=== PATIENT | female | born 1965 | race Caucasian/White ===

== ENCOUNTER 2017-11-24 06:25 | Emergency (ER) | payer OTHER ==
[~2017-11-24] VITALS: Ht 161.3 cm; Wt 91.0 kg
[2017-11-24 06:28] VITALS: Ht 161.3 cm; Wt 91.0 kg
[2017-11-24] MEDS ORDERED: HYDR25TA4 PO (06:47)
[2017-11-24] MEDS ORDERED: DVN80 PO (06:47)
[2017-11-24] MEDS ORDERED: METO25TA3 PO (06:47)
[2017-11-24] MEDS ORDERED: LUTE10TA PO (06:58)
[2017-11-24] MEDS ORDERED: MULT-506 PO (06:58)
--- NOTE | 2017-11-24 07:08 | EMERGENCY ROOM VISIT NOTE ---
History First contact with patient: 06:37 Chief Complaint: CHEST PAIN Stated Complaint: CHEST PAIN/HEAVIENESS History of Present Illness The patient is a 52 year old female with newly diagnosed HTN who presents to the Emergency Room with complaints of "chest twinges" and pressure/burning like pain and nausea since last night. Also reports R shoulder blade pain x 1 week ( think may have pulled a muscle; does recall lifting 6 year old grandson out of the car). Associated with light headedness. Denies vomiting, pain radiating from chest to back or L arm, or sob. Denies any recent trips or immobilization. Denies hx of GERD. Pt was started on Metoprolol 25mg (0.5 tab daily), Hctz 25mg daily and valsartan 80mg daily by Dr. Kaur in October. Pt does report medications causing burning chest sensation, nausea and dizziness. Of note: seen cardiology and has cardiac cath scheduled for [address] Kaur for similar pressure like chest pain for which she went to [place] ED 1 month ago. Review of Systems see below Constitutional: No fever Respiratory: No shortness of breath Cardiovascular: + chest pain Abdomen: + nausea, + diarrhea (chronic), No pain, No vomiting Musculoskeletal: + problem reported (Shoulder blade pain) Genitourinary - Female: No dysuria Neurologic: + problem reported (dizziness) Past Medical/Surgical History Medical Problems: (1) Hypertension Social History Smoking Status: Never Smoker Current/Historical Medications Scheduled Hydrochlorothiazide (Hctz), 25 MG PO HS Lutein (Lutein), 1 TAB PO DAILY Metoprolol Succ (Toprol Xl) (Toprol-Xl), 12.5 MG PO HS Multivitamin (Multivitamin), 1 TAB PO DAILY Valsartan (Diovan), 80 MG PO HS Physical Exam Vital Signs Date Time Temp Pulse Resp B/P (MAP) Pulse Ox O2 Delivery O2 Flow Rate FiO2 11/24/17 08:10 98 11/24/17 08:09 83 18 110/83 98 Room Air 11/24/17 07:45 84 15 95 11/24/17 07:40 80 21 96 11/24/17 07:35 77 20 96 11/24/17 07:30 75 19 95 11/24/17 07:25 75 23 96 11/24/17 07:20 82 29 97 4/10/18 07:15 80 26 96 11/24/17 07:10 82 22 96 11/24/17 07:05 77 15 95 11/24/17 07:00 81 25 97 11/24/17 06:55 85 24 117/77 97 11/24/17 06:50 85 31 11/24/17 06:45 85 30 11/24/17 06:40 83 25 11/24/17 06:39 82 11/24/17 06:28 36.5 85 20 122/79 95 Room Air Physical Exam see below General Appearance: no apparent distress Head: normocephalic, atraumatic Eyes: normal inspection ENT: normal ENT inspection Neck: supple Respiratory/Chest: chest non-tender, lungs clear, normal breath sounds Cardiovascular: regular rate, rhythm, no murmur Abdomen / GI: normal bowel sounds, non tender, soft Back: normal inspection, + pertinent finding (R and L shoulder blades NTTP ) Extremities: no calf tenderness, no pedal edema Neurologic/Psych: alert, oriented x 3 Medical Decision & Procedures ER Provider Diagnostic Interpretation: EKG: constant with prior EKG per Dr. Kaur's note in [place] on 10/21/17 from her ED visit 1 month ago: NSR 78 with LV hypertrophy prolonged QT and T wave abnormality CXR: constant with prior ED visit CXR [address] Kaur's note in [place] on 10/21/17: mild cardiomegaly Laboratory Results 11/24/17 06:40 Red Blood Count 5.30, Mean Corpuscular Volume 84.0, Mean Corpuscular Hemoglobin 28.7, Mean Corpuscular Hemoglobin Concent 34.2, Mean Platelet Volume 10.4, Neutrophils (%) (Auto) 60.9, Lymphocytes (%) (Auto) 26.0, Monocytes (%) (Auto) 9.4, Eosinophils (%) (Auto) 2.9, Basophils (%) (Auto) 0.7, Neutrophils # (Auto) 4.65, Lymphocytes # (Auto) 1.99, Monocytes # (Auto) 0.72, Eosinophils # (Auto) 0.22, Basophils # (Auto) 0.05 11/24/17 06:40 Test 11/24/17 06:40 11/24/17 06:54 White Blood Count 7.64 K/uL (4.8-10.8) Red Blood Count 5.30 M/uL (4.2-5.4) Hemoglobin 15.2 g/dL (12.0-16.0) Hematocrit 44.5 % (37-47) Mean Corpuscular Volume 84.0 fL (80-100) Mean Corpuscular Hemoglobin 28.7 pg (25-34) Mean Corpuscular Hemoglobin Concent 34.2 g/dl (32-36) Platelet Count 319 K/uL (130-400) Mean Platelet Volume 10.4 fL (7.4-10.4) Neutrophils (%) (Auto) 60.9 % Lymphocytes (%) (Auto) 26.0 % Monocytes (%) (Auto) 9.4 % Eosinophils (%) (Auto) 2.9 % Basophils (%) (Auto) 0.7 % Neutrophils # (Auto) 4.65 K/uL (1.4-6.5) Lymphocytes # (Auto) 1.99 K/uL (1.2-3.4) Monocytes # (Auto) 0.72 K/uL (0.11-0.59) Eosinophils # (Auto) 0.22 K/uL (0-0.5) Basophils # (Auto) 0.05 K/uL (0-0.2) RDW Standard Deviation 42.3 fL (36.4-46.3) RDW Coefficient of Variation 13.8 % (11.5-14.5) Immature Granulocyte % (Auto) 0.1 % Immature Granulocyte # (Auto) 0.01 K/uL (0.00-0.02) Anion Gap 9.0 mmol/L (3-11) Est Creatinine Clear Calc Drug Dose 85.8 ml/min Estimated GFR () 94.7 Estimated GFR (Non- 81.7 BUN/Creatinine Ratio 17.5 (10-20) Calcium Level 9.2 mg/dl (8.5-10.1) Total Creatine Kinase 149 U/L (26-192) Creatine Kinase MB 1.9 ng/ml (0.5-3.6) Creatine Kinase MB Ratio 1.3 (0-3.0) Troponin I < 0.015 ng/ml (0-0.045) Bedside Troponin I < 0.030 ng/ml (0-0.045) ED Course Pt evaluated in A2 at 6:[address] Calvillo at 6:58 Medical Decision 52y/oF with hx of HTN and previous chest pain presents with "twinges in chest" and chest pressure like sensation associated with nausea x 1 day, and R shoulder blade pain x 1 week concerning for possible SD vs. stable angina vs. GERD vs. back strain. PE less likely given lack of risk factors, history and exam findings. -Ordered EKG - see above for results -Ordered CXR: mild cardiomegaly -Ordered Troponin, CKMB: normal -Ordered CBC, BMP wnl except for K of 3.1 which was repleted with 40meq of KCL -Pt stable for discharge for cardiac cath with Dr. Kaur this AM at 0900 Pt records also reviewed on [facility]: -Per Dr. Kaur's notes: Previous EKG consistent with LV hypertrophy, QRS widening and secondary ST-T wave changes and a lateral ischemia could not be excluded; CXR consistent with cardiomegaly -ECHO: severe LV dysfunction and severe dilated LV and severe global hypokinesis with EF of 20-25% on 10/2017 -Pt also has hx of Lyme disease Impression Primary Impression: Stable angina Departure Information Dispostion Home / Self-Care Condition GOOD Referrals William Kaur DO (PCP) Patient Instructions My [facility]
--- NOTE | 2017-11-24 07:29 | DIAGNOSTIC IMAGING REPORT ---
CHEST ONE VIEW PORTABLE HISTORY: Atypical chest pain COMPARISON: None. FINDINGS: The lungs are clear. No pleural effusions. No pneumothorax. The heart is mildly enlarged. No rib fractures. IMPRESSION: Mild cardiomegaly. Electronically signed by: Edson Milner M.D. 11/24/2017 7:27 AM Dictated Date/Time: 11/24/2017 7:26 AM
[2017-11-24 07:55] LABS: BASO % 0.7 %; BASO ABS # 0.05 K/uL (0-0.2); EOS % 2.9 %; EOS ABS # 0.22 K/uL (0-0.5); HEMATOCRIT 44.5 % (37-47); HEMOGLOBIN 15.2 g/dL (12.0-16.0); IG# 0.01 K/uL (0.00-0.02); LYMPH ABS # 1.99 K/uL (1.2-3.4); MEAN CORPUSCULAR HEMOGLOBIN 28.7 pg (25-34); MEAN CORPUSCULAR HGB CONC 34.2 g/dl (32-36); MEAN PLATELET VOLUME 10.4 fL (7.4-10.4); MONO % 9.4 %; MONO ABS # 0.72 K/uL (0.11-0.59); NEUT % 60.9 %; NEUT ABS # 4.65 K/uL (1.4-6.5); PLATELET COUNT 319 K/uL (130-400); RED CELL DISTRIBUTION WIDTH CV 13.8 % (11.5-14.5); RED CELL DISTRIBUTION WIDTH SD 42.3 fL (36.4-46.3); WHITE BLOOD COUNT 7.64 K/uL (4.8-10.8)
[2017-11-24 08:07] LABS: BLOOD UREA NITROGEN 14 mg/dl (7-18); CALCIUM 9.2 mg/dl (8.5-10.1); CARBON DIOXIDE 28 mmol/L (21-32); CREATININE 0.82 mg/dl (0.60-1.20); GLUCOSE 111 mg/dl (70-99); POTASSIUM 3.1 mmol/L (3.5-5.1); SODIUM 141 mmol/L (136-145)
[2017-11-24 08:12] LABS: CKMB 1.9 ng/ml (0.5-3.6)
[2017-11-24] MEDS ORDERED: POTASSIUM CHLORIDE 10 MEQ TABCR PO STA (08:14)
[2017-11-24 08:35] VITALS: TEMP 36.5; O2SAT 98
[2017-11-24] MEDS ORDERED: HEPARIN SOD (PORCINE) 1000 UNIT/ML 10 ML VIAL ONE (08:49)
[2017-11-24] MEDS ORDERED: MIDAZOLAM HCL 1 MG/ML 2ML VIAL ONE (08:49)
[2017-11-24] MEDS ORDERED: FENTANYL CITRATE INJ 50 MCG/1 ML 2 ML VIAL ONE (08:49)
[2017-11-24] MEDS ORDERED: NiCARDipine HCL INJ 2.5 MG/ML 10 ML AMP ONE (08:49)
[2017-11-24] MEDS ORDERED: NITROGLYCERIN/D5W 100MCG/ML 20ML SYR ONE (08:50)
[2017-11-24] MEDS ORDERED: ASPIRIN 81 MG CHEW ONE (08:57)
--- NOTE | 2017-11-24 10:02 | EMERGENCY ROOM VISIT NOTE ---
History Report prepared by Gerardo: Page Infnate Under the Supervision of: Dr. Jerardo Rizvi D.O. First contact with patient: 06:51 Chief Complaint: CHEST PAIN Stated Complaint: CHEST PAIN/HEAVIENESS History of Present Illness The patient is a 52 year old female who presents to the Emergency Room with complaints of persistent chest pain starting last night. She describes the pain as "twinges" in her mid-chest. She also started having nausea last night. She reports right shoulder blade pain for the past week which she thinks might be a muscle. She notes that she lifted her 6 year old grandson prior to the pain starting. The patient was started on metoprolol, HCTZ, and valsartan 1 month ago for hypertension. She has been experiencing some side effects of nausea and dizziness since. She is scheduled for a catheterization today. She had some cough and sneezing last week which have improved. She denies any vomiting, SOB, abdominal pain, or calf pain. She denies any history of blood clots. Source of History: patient Onset: last night Position: chest (mid) Quality: other (twinge) Timing: other (persistent) Associated Symptoms: + cough, + nausea, No SOB, No vomiting, No abdominal pain Note: Pt reports right shoulder blade pain. Review of Systems See HPI for pertinent positives & negatives. A total of 10 systems reviewed and were otherwise negative. Past Medical & Surgical Medical Problems: (1) Hypertension Family History No pertinent family history stated. Social History Smoking Status: Never Smoker Marital Status: Housing Status: lives with family Occupation Status: unemployed Current/Historical Medications Scheduled Hydrochlorothiazide (Hctz), 25 MG PO HS Lutein (Lutein), 1 TAB PO DAILY Metoprolol Succ (Toprol Xl) (Toprol-Xl), 12.5 MG PO HS Multivitamin (Multivitamin), 1 TAB PO DAILY Valsartan (Diovan), 80 MG PO HS Allergies Coded Allergies: Amoxicillin (Verified Allergy, Severe, RASH, ITCHING "ALL OVER", 11/24/17) Penicillins (Verified Allergy, Severe, RASH, ITCHING "ALL OVER", 11/24/17) Physical Exam Vital Signs Date Time Temp Pulse Resp B/P (MAP) Pulse Ox O2 Delivery O2 Flow Rate FiO2 11/24/17 08:35 36.5 83 18 110/83 98 11/24/17 08:10 98 4/10/18 08:09 83 18 110/83 98 Room Air 11/24/17 07:45 84 15 95 11/24/17 07:40 80 21 96 11/24/17 07:35 77 20 96 11/24/17 07:30 75 19 95 11/24/17 07:25 75 23 96 11/24/17 07:20 82 29 97 11/24/17 07:15 80 26 96 11/24/17 07:10 82 22 96 11/24/17 07:05 77 15 95 11/24/17 07:00 81 25 97 11/24/17 06:55 85 24 117/77 97 11/24/17 06:50 85 31 11/24/17 06:45 85 30 11/24/17 06:40 83 25 11/24/17 06:39 82 11/24/17 06:28 36.5 85 20 122/79 95 Room Air Physical Exam CONSTITUTIONAL/VITAL SIGNS: Reviewed / noted above. GENERAL: Non-toxic in appearance. INTEGUMENTARY: Warm, dry, and [place]. HEAD: Normocephalic. EYES: without scleral icterus or trauma. ENT/OROPHARYNX: clear and moist. LYMPHADENOPATHY/NECK: Is supple without lymphadenopathy or meningismus. RESPIRATORY: Lungs clear and equal. CARDIOVASCULAR: Regular rate and rhythm. GI/ABDOMEN: Soft and nontender. No organomegaly or pulsatile mass. No rebound or guarding. Normal bowel sounds. EXTREMITIES: Warm and well perfused. BACK: No CVA tenderness. NEUROLOGICAL: Intact without focal deficits. PSYCHIATRIC: normal affect. MUSCULOSKELETAL: Normally developed with good muscle tone. Medical Decision & Procedures ER Provider Diagnostic Interpretation: X ray results and stated below per my interpretation and radiology interpretation. CHEST ONE VIEW PORTABLE HISTORY: Atypical chest pain COMPARISON: None. FINDINGS: The lungs are clear. No pleural effusions. No pneumothorax. The heart is mildly enlarged. No rib fractures. IMPRESSION: Mild cardiomegaly. Electronically signed by: Edson Milner M.D. 11/24/2017 7:27 AM Dictated Date/Time: 11/24/2017 7:26 AM Laboratory Results 11/24/17 06:40 Red Blood Count 5.30, Mean Corpuscular Volume 84.0, Mean Corpuscular Hemoglobin 28.7, Mean Corpuscular Hemoglobin Concent 34.2, Mean Platelet Volume 10.4, Neutrophils (%) (Auto) 60.9, Lymphocytes (%) (Auto) 26.0, Monocytes (%) (Auto) 9.4, Eosinophils (%) (Auto) 2.9, Basophils (%) (Auto) 0.7, Neutrophils # (Auto) 4.65, Lymphocytes # (Auto) 1.99, Monocytes # (Auto) 0.72, Eosinophils # (Auto) 0.22, Basophils # (Auto) 0.05 11/24/17 06:40 Test 11/24/17 06:40 11/24/17 06:54 White Blood Count 7.64 K/uL (4.8-10.8) Red Blood Count 5.30 M/uL (4.2-5.4) Hemoglobin 15.2 g/dL (12.0-16.0) Hematocrit 44.5 % (37-47) Mean Corpuscular Volume 84.0 fL (80-100) Mean Corpuscular Hemoglobin 28.7 pg (25-34) Mean Corpuscular Hemoglobin Concent 34.2 g/dl (32-36) Platelet Count 319 K/uL (130-400) Mean Platelet Volume 10.4 fL (7.4-10.4) Neutrophils (%) (Auto) 60.9 % Lymphocytes (%) (Auto) 26.0 % Monocytes (%) (Auto) 9.4 % Eosinophils (%) (Auto) 2.9 % Basophils (%) (Auto) 0.7 % Neutrophils # (Auto) 4.65 K/uL (1.4-6.5) Lymphocytes # (Auto) 1.99 K/uL (1.2-3.4) Monocytes # (Auto) 0.72 K/uL (0.11-0.59) Eosinophils # (Auto) 0.22 K/uL (0-0.5) Basophils # (Auto) 0.05 K/uL (0-0.2) RDW Standard Deviation 42.3 fL (36.4-46.3) RDW Coefficient of Variation 13.8 % (11.5-14.5) Immature Granulocyte % (Auto) 0.1 % Immature Granulocyte # (Auto) 0.01 K/uL (0.00-0.02) Anion Gap 9.0 mmol/L (3-11) Est Creatinine Clear Calc Drug Dose 85.8 ml/min Estimated GFR () 94.7 Estimated GFR (Non- 81.7 BUN/Creatinine Ratio 17.5 (10-20) Calcium Level 9.2 mg/dl (8.5-10.1) Total Creatine Kinase 149 U/L (26-192) Creatine Kinase MB 1.9 ng/ml (0.5-3.6) Creatine Kinase MB Ratio 1.3 (0-3.0) Troponin I < 0.015 ng/ml (0-0.045) Bedside Troponin I < 0.030 ng/ml (0-0.045) Laboratory results as stated above per my review. Medications Administered Medications (Trade) Dose Ordered Sig/Kenny Route Start Time Stop Time Status Last Admin Dose Admin Potassium Chloride (Klor-Con M10) 40 meq NOW STAT PO 11/24/17 08:14 11/24/17 08:20 DC 11/24/17 08:33 40 MEQ Aspirin (Aspirin Chew) 324 mg STK-MED ONCE .ROUTE 11/24/17 08:57 11/24/17 08:58 DC 11/24/17 08:57 324 MG ECG Per My Interpretation Indication: chest pain Rate (beats per minute): 78 Rhythm: normal sinus Findings: T-wave inversion (Lateral), no ectopy ED Course 0657: Previous medical records were reviewed. The patient was evaluated in room A2. A complete history and physical examination was performed. 0731: I spoke with Dr. Roland, [facility] cardiology. Patient will be sent to the phlebotomist lab assistant for her appointment as scheduled. 0814: Potassium Chloride 40 meq PO. 0826: On reevaluation, the patient is resting comfortably. I discussed the results and findings with the patient. She verbalized agreement of the treatment plan. She was discharged home. Medical Decision Differentials considered include acute myocardial infarction, acute coronary syndrome, myocarditis, pericarditis, pericardial effusions /tamponade, esophageal perforation, thoracic aortic dissection, pulmonary embolism, pneumonia, pneumothorax, pancreatitis, shingles, acute cholecystitis, and perforated abdominal viscus. This is a 52-year-old female who presents to the ED with a chief complaint of some twinges of pain in her mid chest that she also describes as burning and pressure. She has also had some shoulder blade pain. The patient has had the symptoms for about a week. She was scheduled to have a cardiac catheterization today and came into the ED early for evaluation. Her vital signs are normal. Her physical exam was also normal. Blood work reveals a normal CBC, chemistry panel was unremarkable with some mild exception of mild hypokalemia. Cardiac enzymes, EKG and chest x-ray were reviewed. EKG shows some chronic changes and troponin was negative. The patient was told the results of the test. She was sent to the cardiac phlebotomist lab assistant for her previously scheduled catheterization. I did speak briefly with Dr. Roland about the patient. Medication Reconcilliation Current Medication List: was personally reviewed by me Blood Pressure Screening Patient's blood pressure: Normal blood pressure Blood pressure disposition: Did not require urgent referral Consults Time Called: 725 Consulting Physician: Dr. Roland, [facility] cardiology Returned Call: 730 I spoke with him. Patient will be sent to the phlebotomist lab assistant for her appointment as scheduled. Impression Primary Impression: Chest pain Scribe Attestation The scribe's documentation has been prepared under my direction and personally reviewed by me in its entirety. I confirm that the note above accurately reflects all work, treatment, procedures, and medical decision making performed by me. Departure Information Dispostion Home / Self-Care Referrals William Kaur DO (PCP) Forms Call Back Authorization, HOME CARE DOCUMENTATION FORM, IMPORTANT VISIT INFORMATION Patient Instructions Angina, My [facility] Additional Instructions Follow up with Dr. Kaur as instructed Continue medications prescribed by Dr. Kaur
--- NOTE | 2017-11-24 10:24 | History & Physical Bridge Note ---
H&P Re-Evaluation Bridge Note: I have examined the patient, reviewed the History & Physical and in the interval since the performance of the History & Physical I have noted the following changes of clinical significance: No changes noted
--- NOTE | 2017-11-24 10:25 | Post Sedation Assessment ---
Post Sedation Assessment General Date of Sedation Nov 24, 2017. Vital Signs: Vital Signs Past 12 Hours Date Time Temp Pulse Resp B/P (MAP) Pulse Ox O2 Delivery O2 Flow Rate FiO2 11/24/17 10:20 76 18 134/71 (92) 95 Room Air 11/24/17 08:35 36.5 83 18 110/83 98 11/24/17 08:10 98 11/24/17 08:09 83 18 110/83 98 Room Air 11/24/17 07:45 84 15 95 11/24/17 07:40 80 21 96 11/24/17 07:35 77 20 96 11/24/17 07:30 75 19 95 11/24/17 07:25 75 23 96 11/24/17 07:20 82 29 97 11/24/17 07:15 80 26 96 11/24/17 07:10 82 22 96 11/24/17 07:05 77 15 95 11/24/17 07:00 81 25 97 11/24/17 06:55 85 24 117/77 97 11/24/17 06:50 85 31 11/24/17 06:45 85 30 11/24/17 06:40 83 25 11/24/17 06:39 82 11/24/17 06:28 36.5 85 20 122/79 95 Room Air Post Procedure Recovery Score Activity: (2) Moves 4 extremities * Respiration: (2) Deep breath/cough Circulation: (2) +/-20% PreAnes Value Consciousness: (2) Fully Awake Oxygen Saturation: (2) > 92% On Room Air Post Anesthesia Score: 10 Discharge Sedation Level of Care: Fast Track Phase II Post Sedation Plan On clinical assessment, the patient appears to have tolerated the sedation without complications. Patient is recovering as anticipated. Patient will continue to be monitored by nursing and may be discharged when sedation discharge criteria are met per below protocol. Upon Completions of procedure and additional 15 minutes continue every 5 minute vital signs and the P.A.R. score; then discharge to a Phase I or Fast Track to Phase II per the following guidelines: * Discharge Patient to appropriate Phase II area if PAR is 8 or greater or return to pre- procedure baseline. The post - procedure orders will be as directed. * If PAR score is less than 8 or not return to pre-procedure baseline then patient will follow Phase I monitoring till PAR is reached for Phase II. The Phase I may be done in procedure room or may call to secure a Phase I area. * If naloxone or flumazenil are used for reversal, hold in Phase I for an additional 60 -120 minutes before discharge to Phase II. Please call the Sedation Physician to re-evaluate and complete post-note for discharge to Phase II area. Do NOT discharge from procedure sedation or Phase 1 until post- sedation evaluation note is complete by procedure /sedation MD Sedation Discharge Instructions to be given to the patient at discharge to home.
--- NOTE | 2017-11-24 10:25 | Pre Sedation Assessment ---
Pre Sedation Assessment General Date of Sedation: Nov 24, 2017. Vital Signs Past 12 Hours Date Time Temp Pulse Resp B/P (MAP) Pulse Ox O2 Delivery O2 Flow Rate FiO2 11/24/17 10:20 76 18 134/71 (92) 95 Room Air 11/24/17 08:35 36.5 83 18 110/83 98 11/24/17 08:10 98 11/24/17 08:09 83 18 110/83 98 Room Air 11/24/17 07:45 84 15 95 11/24/17 07:40 80 21 96 11/24/17 07:35 77 20 96 11/24/17 07:30 75 19 95 11/24/17 07:25 75 23 96 11/24/17 07:20 82 29 97 11/24/17 07:15 80 26 96 11/24/17 07:10 82 22 96 11/24/17 07:05 77 15 95 11/24/17 07:00 81 25 97 11/24/17 06:55 85 24 117/77 97 11/24/17 06:50 85 31 11/24/17 06:45 85 30 11/24/17 06:40 83 25 11/24/17 06:39 82 11/24/17 06:28 36.5 85 20 122/79 95 Room Air Review Cardiovascular: regular rate, rhythm, no edema Lungs: chest non-tender, lungs clear Pre-Sedation Airway Assessment Smoking Status: Never Smoker Hx of Sleep Apnea: No Hx of difficult intubation: No Short Thick Neck: Yes Thyro-mental Distance: < or =3 Finger Breadths Oral Cavity: WNL Mallampati Classification: Class III ASA Classification: Class III NPO Status Date of Last Intake of Fluids: Nov 23, 2017 Time of Last Intake of Fluids: 2199 Date of Last Intake of Solids: Nov 23, 2017 Time of Last Intake of Solids: 2199 Procedure Planning Contraindications for Sedation: None Current Medications Reviewed: Yes Notes The planned sedation has been discussed with the patient. Informed Consent was obtained. I have identified the patient, determined the appropriateness of sedation and have assessed the patient immediately prior to the procedure. All medicine(s) and interventions are by my order.
--- NOTE | 2017-11-24 10:35 | Cardiac Catheterization ---
Procedure Note Procedure Date Nov 24, 2017. Pre-Procedure Diagnosis Cardiomyopathy, Cardiothoracic Symptom AUC Score 7 Post-Procedure Diagnosis Normal Coronary Arteries, Normal Intracardiac Pressures Procedure(s) Performed Coronary Angiography, Left Heart Cath, Right Heart Cath, Ultrasound Guided Vascular Access Grizzlyman Luan Hall Supervisor(s) Jonah Estimated Blood Loss 15 Medication(s) Fentanyl, Heparin, Nicardipine, Nitroglycerin, Versed, Lidocaine 1% Summary of Findings Indication: Cardiomyopathy, shortness of breath/chest pain Access: 6Fr right radial artery; ultrasound guided access of right antecubital vein Catheters: Lane, JL3.5, Jordy; 6Fr [place] Findings: LM - Angiographically normal LAD - Large caliber vessel, minimal luminal irregularities Circumflex - Large caliber vessel, angiographically normal RCA - Dominant, large caliber vessel, angiographically normal RA 1 RV 28/5 PA 24/11 (18) PAWP 5 LVEDP 4 PaSat 76% AoSat 99% Martha CO/CI 5.1/2.6 Thermo CO/CI 4.9/2.5 Arterial Closure: TR Band Summary: 1. Angiographically normal coronary arteries. 2. Normal cardiac output. 3. Normal intracardiac filling pressures. 4. Normal pulmonary artery pressures. Recommendations: Continued GDMT for non-ischemic cardiomyopathy Continued ASCVD risk factor modification Follow-up with Dr. Kaur as scheduled Hemodynamics Rest Ao: 102/64/82 Final Ao: 108/62/82 LV: 103/3 Recommendations Medical therapy and/or Counseling Specimens None Radiation Exposure (mGy) 1528 Contrast (mls) 50 Fluids (cc crystalloids) 133 Drains None Anesthesia Moderate Procedural Complication(s) None Disposition Loan Counselor Holding/Recovery [facility] Data Cardiac Status Clinical evaluation leading to the procedure CAD Presntation: Sx unlikely to be ischemic Anginal Classification: CCS III Heart Failure: Yes, NYHA Class: CCS II Cardiogenic Shock w/in 24Hrs: No Cardiac Arrest w/in 24Hrs: No Imaging studies past 6 months: Yes Stress studies past 6 months: No Closure Device Percutaneous Entry Location: Radial Closure Device: Radial Band Recommendations: Medical therapy and/or Counseling Intraprocedure Events Significant Dissection: No Perforation: No
--- NOTE | 2017-11-24 10:37 | Discharge Instructions ---
Discharge Instructions Procedure Procedure Date: Nov 24, 2017. Reason for Visit: Chest Pain/Heavieness. Discharge Discharge Date: Nov 24, 2017. Discharge Diagnosis: Nonischemic cardiomyopathy Problem List: Medical Problems: (1) Chest pain Status: Acute (2) Stable angina Status: Acute Last Recorded Wt (Kilograms): 91.000 Anesthesia Post Anesthesia Instructions: If you have had General Anesthesia or IV Sedation: * Do not drive today. * Resume driving when surgeon permits. * Do not make important decisions or sign legal documents today. * Call surgeon for: 1. Temperature elevations greater than 101 degrees F. 2. Uncontrollable pain. 3. Excessive bleeding. 4. Persistent nausea and vomiting. 5. Medication intolerance (nausea, vomiting or rash). * For nausea and vomiting use only clear liquids such as: tea, soda, bouillon until nausea subsides, then gradually increase diet as tolerated. * If you have any concerns or questions, call your surgeon's office. If physician is unavailable and it is an emergency, call 911 or go to the nearest emergency room. Instructions Activity Recommendations: limitations as noted below Recommended Home Diet: low sodium, low cholesterol Allergies: Coded Allergies: Amoxicillin (Verified Allergy, Severe, RASH, ITCHING "ALL OVER", 11/24/17) Penicillins (Verified Allergy, Severe, RASH, ITCHING "ALL OVER", 11/24/17) Follow Up Additional Instructions: ACTIVITY RECOMMENDATIONS: Excess manipulation of the wrist should be avoided for the next 24-48 hours. * No lifting over 2 pounds (approximately a 1/2 gallon of milk) with the utilized arm for 24 hours. * No strenuous activity such as bowling or tennis for 3 days. * Keep the site of the procedure covered with a bandage for 24 hours. *You may shower the day after the procedure. Do not take a tub bath or submerge the puncture site in water for the next 3 days. *Do not operate any motorized equipment for 3 days. SPECIAL CARE INSTRUCTIONS: The site may be slightly bruised and sore following your procedure. Should any of the following occur, contact the Dr. who performed your procedure. 1. Redness/inflammation, swelling, chills, or fever, or colored drainage at procedure site within 3-7 days after your procedure. 2. Coldness, discoloration, ongoing numbness, severe pain, or swelling. Expect mild tingling of hand and tenderness at the puncture site for up to three days. If this persists beyond three days, or other symptoms develop, notify the Dr. who performed your procedure. BLEEDING: If the procedure site on your wrist begins to bleed, do not panic 1. Place 1 or 2 fingers firmly just slightly above the insertion site to stop the bleeding. You may be able to feel your pulse as you hold pressure. 2. Lift your finger after 5 minutes to see if the bleeding has stopped. 3. Once the bleeding has stopped, gently wipe the wrist area clean with a bandage. * If the bleeding from your wrist does not stop after 10 minutes, or if there is a large amount of bleeding or spurting, call 911 (do not drive yourself to the hospital). SKIN IRRITATION: * You may experience some redness and/or swelling in the area where radiation was administered. If any skin irritation occurs, please contact your family physician. FOLLOW UP VISIT: Keep any scheduled doctor appointments. Follow-up with: As scheduled with Dr. Vincent Hodge Recommendations: Call your doctor if: * Temperature above 101 degrees * Pain not relieved by pain medicine ordered * There is increased drainage or redness from any incision * You have any unanswered questions or concerns. Your Doctors Instructions noted above were prepared by provider Bernardo Roland. Patient Signature Section: Patient Instructions Signature Page Leonor Gonzalez Patient (or Guardian) Signature/Date: I have read and understand the instructions given to me by my caregivers. Caregiver/RN/Doctor Signature/Date: The above-named patient and/or guardian has received patient instructions on this date. + Original Patient Signature Page (only) stays with chart. Please make copy for patient.
[2017-11-24 13:15] VITALS: BP 111/76; PULSE 68; O2SAT 95
== END 2017-11-24 08:36 | disposition home or self-care (01) ==
LOC: C.EDB 06:27 → C.EDA 08:36
DX: I42.9 Cardiomyopathy, unspecified (principal); I27.20 Pulmonary hypertension, unspecified; I10 Essential (primary) hypertension; H35.30 Unspecified macular degeneration; Z88.0 Allergy status to penicillin; Z83.518 Family history of other specified eye disorder; Z82.3 Family history of stroke